=== PATIENT | male | born 1975 | race Caucasian/White ===

== ENCOUNTER 2021-09-09 10:27 | Emergency (ER) | payer OTHER, SELFPAY ==
--- NOTE | ~2021-09-09 | XR_ITS ---
EXAMINATION: XR ankle RT min 3V DATE: 09/09/2021 10:49 INDICATION: Right ankle pain. Fall. TECHNIQUE: 4 views of right ankle were obtained. COMPARISON: None. FINDINGS: Bone alignment is normal. There are small bone fragments distal to medial and lateral malle chucky. There is mild osteoarthritis of talonavicular joint. There is ankle soft tissue swelling. IMPRESSION: 1. Small bone fragment distal to medial and lateral malleoli, which may be acute avulsion fractures o r findings from old injury. Reviewed, dictated and finalized at location A. ER SELECTOR IMPRESSION: 1. Small bone fragment distal to medial and lateral malleoli, which may be acut e avulsion fractures or findings from old injury.
[2021-09-09 10:40] VITALS: BP 97/67; PULSE 57; RESP 16; TEMP 36.7; O2SAT 100
--- NOTE | 2021-09-09 11:18 | ED.GENADULT ---
HPI - General Adult General Chief complaint: Extremity Injury, Lower Stated complaint: Right ankle pain Source: patient Mode of arrival: ambulatory Limitations: no limitations History of Present Illness HPI narrative: Patient presents for evaluation of right ankle pain. He indicates his ankle gave out when he was walking down steps just prior to arrival. He fell down two steps. He did not hit his head nor did he have a LOC. He denies any other injury. He states his pain is 6-7/10, described as the same sensation as a bruise . He reports numbness in right ankle but denies numbness or tingling distal to that. Movement and weight bearing make his pain worse. He took some ibuprofen just prior to the fall. He indicates that he rolled his ankle back in 2004. He did not have imaging at that time. He has had some ongoing symptoms intermittently since that time. No additional complaints or concerns. Related Data Allergies Allergy/AdvReac Type Severity Reaction Status Date / Time amoxicillin Allergy Hives Verified 09/09/21 10:36 Review of Systems Review of Systems: CONSTITUTIONAL: Denies fever, chills, or sweats. EYES: Denies visual changes, redness, or discharge. ENT: Denies rhinorrhea, congestion, sore throat, or otalgia. CARDIOVASCULAR: Denies chest pain, palpitations, or edema. RESPIRATORY: Denies cough or dyspnea. GASTROINTESTINAL: Denies abdominal pain, nausea, vomiting, or diarrhea. GENITOURINARY: Denies dysuria or hematuria. SKIN: Denies rash or itching. MUSCULOSKELETAL: Reports right ankle pain. Denies back pain or myalgia. NEUROLOGIC: Denies headache, numbness, dizziness, or weakness. PSYCHIATRIC: Denies anxiety or depression. [facility] Past Medical History Medical History No pertinent past medical history Surgical History Surgical History No pertinent past surgical history Family History Family History Mother Family history unknown Social History Social History Smoking status: Never smoker Substance use: never Living arrangements: with family Gender identity (if verbalized by the patient): Male Sexual Orientation (if Verbalized by the Patient): Straight or Heterosexual Spiritual care concerns: No Exam Narrative: GENERAL: Well-appearing, well-nourished, and in no acute distress. HEAD: Normocephalic, atraumatic. EYES: PERRLA and EOMI. ENT: Nares clear, no rhinorrhea or epistaxis. Mucous membranes moist. Oropharynx without tonsillar hypertrophy exudate or other lesions. Bilateral TMs pearly figueroa nonbulging NECK: Supple. No adenopathy or masses. No carotid bruits or JVD CHEST: Clear to auscultation. No respiratory distress. No wheezes rales or rhonchi HEART: Regular rate and rhythm. No murmur heard. Normal peripheral pulses. ABDOMEN: Soft, nontender, nondistended, normal active bowel sounds. EXTREMITIES: There is tenderness just inferior to right medial malleolus and inferior to right lateral malleolus. There is no significant swelling. No crepitus or deformity. Able to dorsi and plantarflex the right foot. No tenderness over achilles tendon SKIN: Warm, dry, no rash. NEURO: No focal deficits. Alert and oriented x3. PSYCH: Normal mood and affect. Course Course Emergency Course: This is a 46-year-old male who presents with complaints of right ankle pain after his ankle gave out on him just prior to arrival. Appears to be ossific fragment adjacent to medial malleolus and another adjacent to lateral malleolus. It is unclear whether this is a new injury as he had an injury in past without imaging at that time. He was placed in short leg OCL and provided with crutches. Advised to remain non-weight bearing. He should follow up with ortho next week and should r
== END 2021-09-09 11:48 | disposition home or self-care (01) ==
PROVIDERS: Emergency Provider Nurse Practitioner
DX: S82.891A Other fracture of right lower leg, initial encounter for closed fracture (principal); W10.9XXA Fall (on) (from) unspecified stairs and steps, initial encounter
CPT/HCPCS: 29515; 73610; 99214; G0463

== ENCOUNTER 2023-07-22 10:56 | Emergency (ER) | payer OTHER, SELFPAY ==
--- NOTE | ~2023-07-22 | CT_ITS ---
EXAMINATION: CT brain wo con DATE: 07/22/2023 12:47 INDICATION: Headache TECHNIQUE: Computed tomography (CT) of the head was performed without intravenous contrast. Sagittal and coronal reconstructions were performed. The mA was adjusted according to patient size. Iterative reconstruction technique was employed. The dose-length product was 605.33 mGy-cm. COMPARISON: None FINDINGS: No acute intracranial hemorrhage, acute infarction or abnormal extra axial fluid collection. There is mild scattered white matter hypoattenuation consistent with chronic small vessel ischemic di sease. Symmetric prominence of the sulci consistent with mild age-appropriate diffuse cerebral volume loss. Ventricles are normal and symmetric. No mass/mass effect. Likely changes of a right-sided intr aocular lens replacement. The paranasal sinuses are normal. Status post left mastoidectomy. IMPRESSION: 1. No acute intracranial process. 2. Age-related changes including mild diffuse volume loss and mild scattered white matter hypoattenua tion consistent with chronic small vessel ischemic disease. Reviewed, dictated and finalized at location A. TRIC CAR OPERATOR IMPRESSION: 1. No acute intracranial process. 2. Age-related changes including mild diffuse volume loss and mild scattered wh ite matter hypoattenuation consistent with chronic small vessel ischemic diseas e.
[2023-07-22 10:58] VITALS: BP 119/96; PULSE 78; RESP 18; TEMP 36.6; O2SAT 99
--- NOTE | 2023-07-22 12:40 | ED.GENADULT ---
HPI - General Adult General Chief complaint: Headache Stated complaint: headache Time Seen by Provider: 07/22/23 11:55 48-year-old male presenting to the emergency department for evaluation of a right-sided posterior headache that is been ongoing since May. Patient reports the headache is worsened when he looks up and turns to the right and this is very reproducible. Patient does have swollen area his right occiput that is more tender. Patient denies any falls or injuries. Patient denies any associated numbness or weakness, change in vision or change in speech. Patient states he does have intermittent issues with right neck and torticollis and initially thought that is what was going on but symptoms have persisted. Patient does take Tylenol and ibuprofen for pain control but does not take these every day. Related Data Allergies Allergy/AdvReac Type Severity Reaction Status Date / Time amoxicillin Allergy Hives Verified 09/09/21 10:36 Review of Systems Review of Systems: All systems reviewed & are unremarkable except as noted in HPI and below PMFSH Past Medical History Medical History (Updated 07/23/23 @ 00:00 by Julia Sarmiento) No pertinent past medical history Surgical History Surgical History No pertinent past surgical history Family History Family History Mother Family history unknown Social History Social History Smoking status: Never smoker Substance use: never Living arrangements: with family Gender identity (if verbalized by the patient): Male Sexual Orientation (if Verbalized by the Patient): Straight or Heterosexual Spiritual care concerns: No Exam Narrative: APPEARANCE: Well appearing, no pain, no distress, well-nourished. HEAD: normocephalic, atraumatic. EYES: PERRLA/EOMI, conjunctivae clear. NOSE: Normal no drainage EARS:TMS clear with good light reflex. THROAT: Pharynx clear, no exudate. NECK: Supple. No adenopathy, no masses. RESPIRATORY: Airway patent, respirations nonlabored. Clear to auscultation bilaterally, no rales, rhonchi, wheezing. CARDIOVASCULAR: Regular rate and rhythm without murmurs rubs or gallops. ABDOMINAL: Soft, nontender, nondistended, normal bowel sounds MUSCULOSKELETAL: Moves all extremities. Strength/ROM intact, No edema, No calf tenderness. NEURO: Alert. Cranial nerves II through XII intact. Good gait. Good coordination SKIN: Warm, dry. Normal Color, 3 cm area on the posterior right-sided occiput that is tender to palpation, no fluctuance, no overlying erythema Course Course Emergency Course: 48-year-old male presents emergency department for evaluation right-sided posterior headache worsen with range of motion of his head. Head CT was negative. Patient does have an area of tenderness that may be an fatty cyst versus a reactive lymph node, patient does have small lacerations to the back of his scalp secondary to shaving his head. Patient was updated on results of the workup and patient was encouraged of close follow-up with his primary care physician. Patient states he artery has follow-up scheduled for this week. Patient was advised to take ibuprofen scheduled and will also be provided Flexeril for muscle spasm. All questions concerns were addressed patient was comfortable with plan for discharge and close follow-up. Vital Signs Vital signs: Vital Signs Temperature 97.8 F 07/22/23 10:58 Pulse Rate 78 07/22/23 10:58 Respiratory Rate 18 07/22/23 10:58 Blood Pressure 119/96 H 07/22/23 10:58 Pulse Oximetry 99 07/22/23 10:58 Oxygen Delivery Room Air 07/22/23 10:58 Temperature 97.8 F 07/22/23 10:58 Pulse Rate 78 07/22/23 10:58 Respiratory Rate 18 07/22/23 10:58 Blood Pressure 119/96 H 07/22/23 10:58 Pulse Oximetry 99 07/22/23 10:58 Ox
== END 2023-07-22 13:25 | disposition home or self-care (01) ==
PROVIDERS: Emergency Provider Emergency Medicine
DX: R20.8 Other disturbances of skin sensation (principal)
CPT/HCPCS: 70450; 99284

== ENCOUNTER 2023-08-14 01:06 | Day surgery (SDC) | payer OTHER, SELFPAY ==
[2023-08-01 14:13] VITALS: BMI 27.6
--- NOTE | 2023-08-12 11:26 | SUR.PREOP ---
Patient called regarding upcoming procedure. Message left on appointment times.
[2023-08-14 10:18] VITALS: BP 119/73; PULSE 89; RESP 19; TEMP 36.3; O2SAT 98
[2023-08-14] MEDS: LACTATED RINGERS 1,000 ML 150 ML IV CONT (10:19)
--- NOTE | 2023-08-14 10:41 | P.PNAN_ITS ---
Anes - Initial Pre Proc Eval Procedure: Operation Date: 08/14/23 13:30 Proposed Procedures p Screening Colonoscopy - Devyn Carnes MD Date/Time: 08/14/23 10:41 Surgeon: Devyn Carnes MD Pre Op Diagnosis: neoplasm screening Patient Data Age: 48 Gender: M Height: 1.75 m Weight: 84.5 kg Last Vital Signs Temp 97.3 F L 08/14/23 10:18 Pulse 89 08/14/23 10:18 Resp 19 08/14/23 10:18 BP 119/73 08/14/23 10:18 Pulse Ox 98 08/14/23 10:18 O2 Del Method Room Air 08/14/23 10:18 Allergies Allergy/AdvReac Type Severity Reaction Status Date / Time amoxicillin Allergy Hives Verified 08/14/23 10:05 Home Medications Medication Instructions Recorded Confirmed Type atorvastatin 20 mg tablet 20 mg PO DAILY 08/01/23 08/01/23 History Patient hx anesthesia problems: none Family hx anesthesia problems: none Results Review: All pre-operative results and documents have been reviewed as part of the pre- operative evaluation. [facility] Past Medical History Medical History (Updated 07/23/23 @ 00:00 by Julia Sarmiento) No pertinent past medical history Surgical History Surgical History No pertinent past surgical history Family History Family History Mother Family history unknown Social History Social History Smoking status: Never smoker Alcohol intake: never Alcohol use details: 1 DRINK MONTHLY Substance use: never Substance use type: does not use Living arrangements: with family Gender identity (if verbalized by the patient): Male Sexual Orientation (if Verbalized by the Patient): Straight or Heterosexual Spiritual care concerns: No Anes - Eval Final PreProcedure Day of Procedure 08/14/23 10:41 Patient weight: normal Heart: regular rate and rhythm Lungs: clear to auscultation Airway: Mallampati scale class II Neurological: alert and oriented Last oral intake: >/= 8 hours ASA classification: II Emergent: no Anesthetic plan: proceed Anesthesia type and monitoring: general GIVS and standard monitoring Results Review: All pre-operative results and documents have been reviewed as part of the pre- operative evaluation. Informed Consent: The patient's anesthetic plan and its attendant risks and benefits were discussed with the patient/family/POA. Questions were solicited and answers provided to the satisfaction of the patient/family/POA.
--- NOTE | 2023-08-14 10:49 | PM.HPGS ---
History of Present Illness History of Present Illness Consent: Risks, benefits, and alternatives have been discussed and questions answered. Patient agrees to proceed with procedure. Chief complaint: neoplasm screening Narrative: Cecilia Vázquez is a 48 year old male here for first screening colonoscopy Review of Systems Constitutional: Constitutional: Denies headache(s) and Denies weakness Eyes: Eyes: Denies blurry vision ENT: Reports Normal hearing present, Denies headache(s) and Denies neck pain Cardiovascular: Cardiovascular: Denies chest pain and Denies dyspnea Respiratory: Respiratory: Denies dyspnea Gastrointestinal: Gastrointestinal: Reports no additional gastrointestinal complaints Genitourinary: Genitourinary: Denies dysuria Musculoskeletal: Musculoskeletal: Denies neck pain Integumentary/Breasts: Skin/Breast: Denies dry skin Neurologic: Reports Normal hearing present, Denies headache(s) and Denies weakness Psychiatric: Psychiatric: Denies anxiety Endocrine: Endocrine: Denies change in body appearance Hematologic/Lymphatic: Hematologic/Lymphatic: Denies easy bleeding Allergic/Immunologic: Allergic/Immunologic: Denies urticaria [facility] Past Medical History Medical History (Updated 08/14/23 @ 10:50 by Devyn Carnes MD) Colon cancer screening No pertinent past medical history Surgical History Surgical History No pertinent past surgical history Family History Family History Mother Family history unknown Social History Social History Smoking status: Never smoker Alcohol intake: never Alcohol use details: 1 DRINK MONTHLY Substance use: never Substance use type: does not use Living arrangements: with family Gender identity (if verbalized by the patient): Male Sexual Orientation (if Verbalized by the Patient): Straight or Heterosexual Spiritual care concerns: No Meds Home Medications and Allergies Home Medications Medication Instructions Recorded Confirmed Type atorvastatin 20 mg tablet 20 mg PO DAILY 08/01/23 08/01/23 History Allergies Allergy/AdvReac Type Severity Reaction Status Date / Time amoxicillin Allergy Hives Verified 08/14/23 10:05 Vital Signs Vital Signs - 24 hr 08/14/23 10:18 Temperature 97.3 F L Pulse Rate 89 Respiratory Rate 19 Blood Pressure 119/73 Pulse Oximetry 98 Oxygen Delivery Room Air Exam Const: General: comfortable and no acute distress HENMT: Face/Nose/Sinus: Normal nares present Eyes: General: appearance normal, both eyes and all related structures Neck: Neck: no JVD Resp: Auscultation: clear to auscultation bilaterally Cardio: Rate: regular rate Rhythm: regular rhythm GI: Inspection: non-distended GI Palp: Yes Soft to palpation Skin: General skin exam: normal color Neuro: General: gait normal Speech: normal speech Extrem: General: normal to inspection Psych: Mental Status: mental status grossly normal Assessment and Plan Assessment and plan (1) Colon cancer screening: Code(s): Z12.11 - Encounter for screening for malignant neoplasm of colon Status: Acute Assessment and Plan: colonoscopy
[2023-08-14 11:08] VITALS: BP 132/74; PULSE 94; RESP 20; O2SAT 96
[2023-08-14 11:18] VITALS: BP 97/65; PULSE 63; RESP 20; O2SAT 98
[2023-08-14 11:28] VITALS: BP 105/63; PULSE 59; RESP 20; O2SAT 98
== END 2023-08-14 11:38 | disposition home or self-care (01) ==
PROVIDERS: PCP Nurse Practitioner Family; Visit Provider Internal Medicine Gastroenterology
PROC: 0DJD8ZZ Inspection of Lower Intestinal Tract, Via Natural or Artificial Opening Endoscopic (ICD-10-PCS; CPT 45378; principal; 2023-08-14 13:30)
DX: Z12.11 Encounter for screening for malignant neoplasm of colon (principal); K57.30 Diverticulosis of large intestine without perforation or abscess without bleeding
CPT/HCPCS: 45378; J2704; J7120